=== PATIENT | male | born 1990 | race Caucasian/White ===

== ENCOUNTER 2016-10-24 03:18 | Emergency (ER) | payer MEDICAID ==
[~2016-10-24] VITALS: Ht 182.9 cm; Wt 68.0 kg
[2016-10-24 03:26] VITALS: BP 120/67
== END 2016-10-24 07:18 | disposition left against medical advice (07) ==
LOC: ER 03:22
DX: S60.552A Superficial foreign body of left hand, initial encounter (principal); Z53.21 Procedure and treatment not carried out due to patient leaving prior to being seen by health care provider; W45.8XXA Other foreign body or object entering through skin, initial encounter; Y93.89 Activity, other specified; Y99.8 Other external cause status; Y92.89 Other specified places as the place of occurrence of the external cause

== ENCOUNTER 2017-02-15 03:10 | Emergency (ER) | payer MEDICAID, OTHER ==
[~2017-02-15] VITALS: Ht 182.9 cm; Wt 72.6 kg
[2017-02-15] MEDS ORDERED: LIDOCAINE W/ EPINEPHRINE 1 % INJ 30ML ONE (03:29)
[2017-02-15] MEDS ORDERED: LIDOCAINE W/ EPINEPHRINE 1% 20ML VIAL SC ONE (03:45)
[2017-02-15] MEDS ORDERED: ceFAZolin 1GM/50ML D5W 50 ML IV ONE ×2 (03:45)
[2017-02-15 03:49] VITALS: BP 105/63
[2017-02-15] MEDS ORDERED: NEOMYCIN-BACITRACIN-POLYM UNITDOSE PKG TOP OINT TOP ONE (04:00)
[2017-02-15] MEDS ORDERED: LIDOCAINE W/ EPINEPHRINE 1% 20ML VIAL ID ONE (04:00)
[2017-02-15] MEDS ORDERED: ceFAZolin 1GM/50ML D5W 100 ML IV ONE (04:00)
== END 2017-02-15 05:30 | disposition home or self-care (01) ==
LOC: ER 03:10
DX: S61.411A Laceration without foreign body of right hand, initial encounter (principal); W25.XXXA Contact with sharp glass, initial encounter; Y93.89 Activity, other specified; Y92.89 Other specified places as the place of occurrence of the external cause; Y99.8 Other external cause status
CPT/HCPCS: 12042; 73130; 96365; 99284; J0690; J2001; 12002; 96372

== ENCOUNTER 2017-12-12 00:58 | Emergency (ER) | payer OTHER ==
[~2017-12-12] VITALS: Ht 182.9 cm; Wt 68.0 kg
[2017-12-12 01:03] VITALS: BP 128/87
== END 2017-12-12 03:30 | disposition left against medical advice (07) ==
LOC: ER 01:01
DX: R51 Headache (principal); F10.120 Alcohol abuse with intoxication, uncomplicated; Z53.21 Procedure and treatment not carried out due to patient leaving prior to being seen by health care provider; V43.52XA Car driver injured in collision with other type car in traffic accident, initial encounter; Y93.89 Activity, other specified; Y99.8 Other external cause status; Y92.410 Unspecified street and highway as the place of occurrence of the external cause

== ENCOUNTER 2022-02-01 12:45 | Emergency (ER) | payer MEDICAID, OTHER ==
[~2022-02-01] VITALS: Ht 185.4 cm; Wt 88.5 kg
[2022-02-01 13:36] VITALS: BP 120/61
[2022-02-01] MEDS ORDERED: TETANUS-DIPTH-ACEL PERTUSSIS 0.5ML SYR Tdap IM ONE (15:00)
[2022-02-01] MEDS ORDERED: IBUP800T27 PO ×2 (15:02→15:03)
[2022-02-01] MEDS ORDERED: CEPH-509 PO ×2 (15:02→15:03)
== END 2022-02-01 15:17 | disposition home or self-care (01) ==
LOC: ER 12:45
DX: S01.531A Puncture wound without foreign body of lip, initial encounter (principal); F17.210 Nicotine dependence, cigarettes, uncomplicated; Z79.1 Long term (current) use of non-steroidal anti-inflammatories (NSAID); Z79.899 Other long term (current) drug therapy; W22.8XXA Striking against or struck by other objects, initial encounter; Y93.89 Activity, other specified; Y92.89 Other specified places as the place of occurrence of the external cause; Y99.8 Other external cause status
CPT/HCPCS: 90471; 90715

== ENCOUNTER 2023-01-05 05:38 | Emergency (ER) | payer MEDICAID ==
[~2023-01-05] VITALS: Ht 182.9 cm; Wt 79.6 kg
[~2023-01-05 05:38] MED LIST: CEPH-509 PO; IBUP-1456 PO
[2023-01-05 07:17] LABS: Basophils # (auto) 0 10 ^3/uL (0-0.2); Basophils % (auto) 0.2 % (0.0-2.0); Eosinophils # (auto) 0.1 10 ^3/uL (0-0.8); Eosinophils % (auto) 1.6 % (0.0-7.0); Hematocrit 47.8 % (41.0-53.0); Hemoglobin 16.3 g/dL (13.5-17.5); Lymphocytes # (auto) 0.8 10 ^3/uL (0.4-5.4); Lymphocytes % (auto) 14.5 % (10.0-50.0); Mean Corpuscular Hemoglobin 31.3 pg (28.0-32.0); Mean Corpuscular Volume 91.9 fL (80.0-100.0); Monocytes # (auto) 0.5 10 ^3/uL (0-1.3); Monocytes % (auto) 8.7 % (0.0-12.0); Nucleated Red Blood Cells % 0.1 %; White Blood Cell 5.3 10^3/uL (4.4-10.8)
[2023-01-05 07:30] LABS: Albumin 4.2 g/dL (3.4-5.0); Calcium 9.1 mg/dL (8.5-10.1); Potassium 3.9 mmol/L (3.5-5.1)
[2023-01-05 07:34] LABS: BUN/Creatinine Ratio 7.1 (10.0-20.0); Bilirubin, Total 0.3 mg/dL (0.2-1.0); Total Protein 7.4 g/dL (6.4-8.2)
[2023-01-05] MEDS ORDERED: IBU600T PO (09:03)
[2023-01-05 10:56] VITALS: BP 114/63
== END 2023-01-05 10:57 | disposition home or self-care (01) ==
LOC: ER 05:38
DX: R51.9 Headache, unspecified (principal); R42 Dizziness and giddiness; F17.210 Nicotine dependence, cigarettes, uncomplicated; F12.10 Cannabis abuse, uncomplicated
CPT/HCPCS: 36415; 70450; 80053; 84484; 85025